=== PATIENT | female | born 1980 | race Hispanic/Latino ===

== ENCOUNTER 2017-04-25 17:14 | Emergency (ER) | payer BC, OTHER ==
[2017-04-25 17:40] VITALS: BP 127/62; PULSE 91; RESP 16; TEMP 98.9; O2SAT 99
--- NOTE | 2017-04-25 18:44 | ED PDOC ---
Upper Extremity Pain/Injury Time Seen by Provider: 04/25/17 18:30 Chief Complaint (Nursing): Upper Extremity Problem/Injury Chief Complaint (Provider): Left arm pain History Per: Patient History/Exam Limitations: no limitations Onset/Duration Of Symptoms: Other (1 week) Current Symptoms Are (Timing): Still Present Additional Complaint(s): Patient is a 36 y/o female with no significant past medical history presenting to the emergency department for left arm pain ongoing for one week. Reports that the pain radiates from her left neck down to her left arm. Redness noted on her left shoulder. Reports that for two weeks she stopped taking her medication per doctor's orders as it was making her dizzy and led to two falls. Also notes fever and chills last night. Denies any other complaints. Of note, patient was seen in the ED on 04/22/17 for severe pain and was diagnosed with mylagia. She was also given Toradol which provided no significant relief. No x-rays were done. PCP: Dr. Daron Vang Past Medical History Reviewed: Historical Data, Nursing Documentation, Vital Signs Vital Signs: Last Vital Signs Temp 98.9 F 04/25/17 17:38 Pulse 91 H 04/25/17 17:38 Resp 16 04/25/17 17:38 BP 127/62 04/25/17 17:38 Pulse Ox 99 04/25/17 17:38 - Medical History PMH: Fibromyalgia Denies: HIV, Chronic Kidney Disease - Family History Family History: States: No Known Family Hx - Home Medications Home Medications: Ambulatory Orders Medication Instructions Recorded Ondansetron [Zofran] 4 mg PO Q8H PRN #10 tab 01/02/16 Aluminum Hydroxide/Magnesium 30 ml PO Q4 PRN #0 udc 01/04/16 [Maalox Plus 30 ml] Esomeprazole Magnesium [Nexium 40 mg PO BID #21 ecc 01/04/16 24Hr] Prochlorperazine [Compazine] 10 mg PO QID PRN #0 tab 01/04/16 Probenecid 500 mg PO BID #20 tab 04/25/17 - Allergies Allergies/Adverse Reactions: Allergies Allergy/AdvReac Type Severity Reaction Status Date / Time No Known Allergies Allergy Verified 01/02/16 16:35 Review of Systems ROS Statement: Except As Marked, All Systems Reviewed And Found Negative Constitutional: Positive for: Fever, Chills Musculoskeletal: Positive for: Arm Pain (left arm pain that radiates to neck and shoulder) Physical Exam - Reviewed Nursing Documentation Reviewed: Yes Vital Signs Reviewed: Yes - Physical Exam Appears: Positive for: Well, Non-toxic, No Acute Distress Head Exam: Positive for: ATRAUMATIC, NORMAL INSPECTION, NORMOCEPHALIC Skin: Positive for: Normal Color, Warm, Dry Eye Exam: Positive for: Normal appearance ENT: Positive for: Normal ENT Inspection Neck: Positive for: Normal Cardiovascular/Chest: Positive for: Regular Rate, Rhythm Respiratory: Negative for: Accessory Muscle Use, Respiratory Distress Extremity: Positive for: Normal ROM, Tenderness (to left AC joint), Other ( warmth noted on anterior aspect of left shoulder) Neurologic/Psych: Positive for: Alert, Oriented (x3) - ECG O2 Sat by Pulse Oximetry: 99 (RA) Pulse Ox Interpretation: Normal - Radiology X-Ray: Interpreted by Me (arthritis noted to shoulder) Medical Decision Making Medical Decision Making: Time: 18:41 Initial impression: Left shoulder pain Initial plan: Left shoulder x-ray Patient will be evaluated for subluxation of left shoulder.. mild sublaxation noted. ,will place in shoulder immobilizer with f/u with orthopedics and pain control ~ Scribe Attestation: Documented by Chelsey Copeland, acting as a scribe for EUGENIO Duncan. Provider Scribe Attestation: All medical record entries made by the Scribe were at my direction and personally dictated by me. I have reviewed the chart and agree that the record accurately reflects my personal performance of the history, physical exam, medical decision making, and the department course for this patient. I have also personally directed, reviewed, and agree with the discharge instructions and disposition. Disposition - Clinical Impression Clinical Impression: Chronic shoulder pain - Patient ED Disposition Is Patient to be Admitted: No Counseled Patient/Family Regarding: Studies Performed, Diagnosis, Need For Followup, Rx Given - Disposition Referrals: [facility] [Outside] [facility] [Outside] Disposition: Routine/Home Disposition Time: 19:43 Condition: STABLE Prescriptions: Probenecid 500 mg PO BID #20 tab Instructions: Shoulder Sprain (ED) Print Language: ETHIOPIAN
--- NOTE | 2017-04-26 10:48 | RAD ---
PROCEDURE: Radiographs of the Left Shoulder HISTORY: Pain COMPARISON: No prior. FINDINGS: BONES: Normal. No fracture. JOINTS: Normal. Glenohumeral and acromioclavicular joints preserved. No osteoarthritis. SOFT TISSUES: NormalThere is extensive lobular calcification lateral to the greater tuberosity of the humerus. OTHER FINDINGS: None. IMPRESSION: Findings are most compatible with calcific tendinitis.
== END 2017-04-25 20:28 | disposition home or self-care (01) ==
LOC: H.ER 17:14
DX: M25.512 Pain in left shoulder (principal); G89.29 Other chronic pain; M79.7 Fibromyalgia